=== PATIENT | male | born 1950 | race Caucasian/White ===

== ENCOUNTER 2017-02-23 11:58 | Emergency (ER) | payer BC ==
[2017-02-23 12:23] VITALS: BP 147/98; PULSE 82; TEMP 98.7; BMI 27.1
[2017-02-23] MEDS ORDERED: KETOROLAC TROMETHAMINE 60 MG/2 ML VIAL IM ONE (13:59)
[2017-02-23] MEDS ORDERED: KETOROLAC TROMETHAMINE 60 MG/2 ML VIAL ONE (14:01)
--- NOTE | 2017-02-23 14:03 | PDOC ---
History of Present Illness - General Chief Complaint: Back Pain Stated Complaint: BACK PAIN Time Seen by Provider: 02/23/17 13:13 History Source: Patient Exam Limitations: No Limitations - History of Present Illness Initial Comments: 02/23/17 14:00 My chief complaint: Left-sided lower back pain 2 weeks History of present illness: Patient is a 66-year-old male with a history of hyperlipidemia here today complaining of left-sided lower back pain 2 weeks. Patient reports the pain is worse today and is currently a 9 out of 10. Patient denies any radiation of pain down his buttocks or legs or any weakness or numbness of legs or any incontinency or saddle anesthesia or foot drop. Reports that he took ibuprofen this morning with some relief of pain. Patient reports the pain is worse with ambulation or lying down, better with sitting. Patient reports the pain also is worse with turning his torso towards the right. 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 Patient denies having any previous back issues. Patient denies any urinary symptoms. Occurred: reports: other (2 weeks ) Severity: reports: moderate (left sided ) Pain Location: reports: back Method of Injury: Yes: unknown Modifying Factors: improves with: None Loss of Consciousness: no loss of consciousness Past History - Past Medical History Allergies/Adverse Reactions: Allergies Allergy/AdvReac Type Severity Reaction Status Date / Time No Known Allergies Allergy Verified 02/23/17 12:18 Home Medications: Ambulatory Orders Cyclobenzaprine HCl [Flexeril -] 10 mg PO Q8H PRN #21 tablet MDD 3 02/23/17 Naproxen [Naprosyn -] 500 mg PO BID PRN #14 tablet 02/23/17 Hypercholesterolemia: Yes - Surgical History Abdominal Surgery: Yes (Inguinal hernia repair) - Immunization History Immunization Up to Date: Yes - Suicide/Smoking/Psychosocial Hx Smoking History: Never smoked Have you smoked in the past 12 months: No Information on smoking cessation initiated: No Hx Alcohol Use: No Drug/Substance Use Hx: No Substance Use Type: None Review of Systems - Review of Systems Able to Perform ROS?: Yes Constitutional: No: Symptoms Reported HEENTM: No: Symptoms Reported Respiratory: No: Symptoms reported Cardiac (ROS): No: Symptoms Reported ABD/GI: No: Symptoms Reported Musculoskeletal: Yes: Back Pain (left sided ). No: Joint Pain, Joint Swelling, Muscle Pain, Muscle Weakness, Neck Pain Integumentary: No: Symptoms Reported Neurological: No: Symptoms reported *Physical Exam - Vital Signs Last Vital Signs Temp Pulse Resp BP Pulse Ox 98.7 F 82 15 147/98 100 02/23/17 12:19 02/23/17 12:19 02/23/17 12:19 02/23/17 12:19 02/23/17 12:19 - Physical Exam General Appearance: Yes: Appropriately Dressed Respiratory/Chest: positive: Lungs Clear, Normal Breath Sounds. negative: Chest Tender, Respiratory Distress Cardiovascular: positive: Regular Rhythm, Regular Rate, S1, S2 Musculoskeletal: positive: Normal Inspection, Other (left lumbar paraspinal muscle tenderness). negative: CVA Tenderness, CVA Tenderness (R), CVA Tenderness (L), Decreased Range of Motion, Muscle Spasm, Vertebral Tenderness Extremity: positive: Normal Capillary Refill, Normal Inspection, Normal Range of Motion Integumentary: positive: Normal Color Neurologic: positive: Alert, Normal Response, Motor Strength 5/5 (b/l legs ), Respond to painful stimul (b/l legs), Responsive. negative: Numbness, Sensory Deficit (b/l legs ) Deep Tendon Reflexes: Ankle (L): 4+, Ankle (R): 4+, Knee (L): 4+, Knee (R): 4+ Medical Decision Making - Medical Decision Making 02/23/17 14:02 Patient is a 66-year-old male with a history of hyperlipidemia here today complaining of left-sided lower back pain 2 weeks. Patient reports the pain is worse today and is currently a 9 out of 10. Patient denies any radiation of pain down his buttocks or legs or any weakness or numbness of legs or any incontinency or saddle anesthesia or foot drop. Reports that he took ibuprofen this morning with some relief of pain. Patient reports the pain is worse with ambulation or lying down, better with sitting. Patient reports the pain also is worse with turning his torso towards the right. 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 Patient denies having any previous back issues. Patient denies any urinary symptoms. Left sided back pain Plan: Toradol 60 mg IM now X-ray lumbar sacral spine no fracture oted, or gross abnormality Follow up with orthopedist as soon as possible for further eval naprosyn 500 mg q 12 hr prn 14 tabs flexeril 10 mg q 8 hr prn muscle spasm 02/23/17 14:35 02/23/17 15:04 *DC/Admit/Observation/Transfer Diagnosis at time of Disposition: Low back pain Qualifiers: Chronicity: acute Back pain laterality: right Sciatica presence: without sciatica Qualified Code(s): M54.5 - Low back pain; M54.5 - Low back pain - Discharge Dispostion Disposition: HOME Condition at time of disposition: Stable - Prescriptions Prescriptions: Cyclobenzaprine HCl [Flexeril -] 10 mg PO Q8H PRN #21 tablet MDD 3 PRN Reason: Muscle Spasms Naproxen [Naprosyn -] 500 mg PO BID PRN #14 tablet PRN Reason: Pain - Referrals Referrals: Franko Lott MD [Primary Care Provider] - Leonardo Mireles MD [Staff Physician] - - Patient Instructions Additional Instructions: Avoid any strenuous activities or exercise Follow-up with your orthopedist Dr. Mireles as soon as possible for further evaluation Avoid twisting of her torso [id number] body in the direction that she would need to pick something up from Return to emergency room if symptoms worsen or any new symptoms develop Patient voiced understanding of discharge instructions and all questions were answered
== END 2017-02-23 15:14 | disposition home or self-care (01) ==
LOC: JERFT 11:58
DX: M54.5 Low back pain (principal)
CPT/HCPCS: 72100-TC; 99281-25